=== PATIENT | male | born 1980 | race Caucasian/White ===

== ENCOUNTER → 2020-07-05 | Outpatient (CLI) | payer BC, OTHER ==
[~2020-07-05] MED LIST: BACITRACIN OINT 500U/GM, 15 GM ONE; LAMO50TA3 PO; OXCA600T10 PO
== END | disposition home or self-care (01) ==
LOC: STAR 14:29
PROVIDERS: ATTEND Anesthesiology
DX: Z01.812 Encounter for preprocedural laboratory examination (principal); Z20.828 Contact with and (suspected) exposure to other viral communicable diseases
CPT/HCPCS: 87635